=== PATIENT | male | born 1970 | race Caucasian/White ===

== ENCOUNTER 2017-02-15 18:31 | Emergency (ER) | payer OTHER ==
[2017-02-15 18:36] VITALS: TEMP 98.1
--- NOTE | 2017-02-15 19:55 | CPEKG ---
Heart Rate: 68 RR Interval: 882 P-R Interval: 152 QRSD Interval: 108 QT Interval: 416 QTC Interval: 443 P [place]: 51 QRS [place]: 17 T Wave [place]: 49 EKG Severity - ABNORMAL ECG - EKG Impression: SINUS RHYTHM EKG Impression: PROBABLE LEFT ATRIAL ABNORMALITY EKG Impression: INCOMPLETE RIGHT BUNDLE BRANCH BLOCK Electronically Signed By: Richard Estrada 15-Feb-2017 21:26:11
--- NOTE | 2017-02-15 19:59 | EDPHY ---
H & P Time Seen by Provider: 02/15/17 18:47 Smoking Status: Never smoked Constitutional: Initial Vital Signs Temperature (C) 36.7 C 02/15/17 18:33 Heart Rate 71 02/15/17 18:33 Respiratory Rate 16 02/15/17 18:33 Blood Pressure 103/70 02/15/17 18:33 O2 Sat (%) 98 02/15/17 18:33 O2 Delivery Mode Room Air Allergies/Adverse Reactions: Sulfa (Sulfonamide Antibiotics) Allergy (Intermediate, Verified 02/15/17 18:36) Hives Home Medications: Medication Instructions Recorded Hydrocodone/APAP 5/325 [[place] 1 tab PO 02/15/17 5/325 (*)] Levothyroxine Sodium 175 mcg PO 02/15/17 Medical Decision Making - Diagnostics EKG Interpretation: EKG time is 7:53 p.m.; EKG shows a narrow complex normal sinus rhythm with a ventricular rate of 68. Incomplete right bundle branch block noted. Does not appear consistent with a [place] pattern. The ID, QRS, QT intervals are within normal limits. There are no ST-T wave changes indicative of ischemic or injury pattern. No evidence of right heart strain. Interpreted by me. Departure - Departure Referrals: Jared Ching [Primary Care Provider] - As per Instructions
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
[2017-02-15 21:26] VITALS: BP 110/70; PULSE 93; RESP 14; O2SAT 95
== END 2017-02-15 21:27 | disposition home or self-care (01) ==
PROC: 0HQ1XZZ Repair Face Skin, External Approach (ICD-10-PCS; principal; 2017-02-15)
DX: S01.81XA Laceration without foreign body of other part of head, initial encounter (principal); R55 Syncope and collapse; X58.XXXA Exposure to other specified factors, initial encounter; Y93.89 Activity, other specified